=== PATIENT | male | born 1950 | race Two or more races ===

== ENCOUNTER 2016-12-11 03:29 | Emergency (ER) | payer MEDICARE ==
--- NOTE | 2016-12-11 04:29 | C.PDOC ---
History Of Present Illness The patient, a 66 y/o male, presents to the ED for evaluation of recurrent left- sided nose bleed for several days. Patient states his symptoms have been occurring in intermittent episodes. Patient's symptoms have currently resolved in the ED. Patient is not taking any prescription medication and denies any PMHx. Patient denies fever, chills, headache. Time Seen by Provider: 12/11/16 04:09 Chief Complaint (Nursing): ENT Problem History Per: Patient Onset/Duration Of Symptoms: Intermittent Episodes Past Medical History Reviewed: Historical Data, Nursing Documentation, Vital Signs Vital Signs: Last Vital Signs Temp Pulse 106 H 12/11/16 03:55 Resp 20 12/11/16 03:55 BP Pulse Ox 100 12/11/16 04:46 - Medical History PMH: Back Problems (Pain) Family History: States: Unknown Family Hx - Social History Hx Tobacco Use: Yes Hx Alcohol Use: No Hx Substance Use: No - Immunization History Hx Tetanus Toxoid Vaccination: No Hx Influenza Vaccination: Yes Hx Pneumococcal Vaccination: No Review Of Systems Except As Marked, All Systems Reviewed And Found Negative. Constitutional: Negative for: Fever, Chills ENT: Positive for: Other (+epistaxis ) Neurological: Negative for: Headache Physical Exam - Physical Exam Appears: Non-toxic, No Acute Distress Skin: Normal Color, Warm, Dry Head: Atraumatic, Normacephalic Eye(s): bilateral: Normal Inspection Nose: Other (+dry blood on both sides) Oral Mucosa: Moist Throat: Normal, No Erythema, No Exudate Neck: Normal ROM, Supple Chest: Symmetrical, No Deformity Cardiovascular: Rhythm Regular Respiratory: Normal Breath Sounds Extremity: Normal ROM, Capillary Refill (less than 2 seconds ) Neurological/Psych: Oriented x3, Normal Speech, Normal Cognition Gait: Steady ED Course And Treatment O2 Sat by Pulse Oximetry: 100 (on RA) Pulse Ox Interpretation: Normal Progress Note: Pt received Norvasc PO. Patient was offered nasal tamponade and instructed on proper epistaxis control. Patient states he does not want a nasal tamponade at this time. On reassessment, patient is resting comfortably, showing no signs of distress with no active epistaxis in the ED. Patient is stable for discharge with Rx for Afrin [place] and instructed on humidifier use and advised to follow up with ENT within a timely manner for further evaluation. Disposition Counseled Patient/Family Regarding: Diagnosis, Need For Followup, Rx Given - Disposition Referrals: John Collazo MD [Staff Provider] - Disposition: HOME/ ROUTINE Disposition Time: 04:28 Condition: IMPROVED Prescriptions: amLODIPine [Norvasc] 5 mg PO DAILY #15 tab Instructions: Nosebleed (ED), Hypertension (ED) - Clinical Impression Clinical Impression: Hypertension, Epistaxis - Scribe Statement The provider has reviewed the documentation as recorded by the Scribe (Sheyla Carvajal) Provider Attestation: All medical record entries made by the Scribe were at my direction and personally dictated by me. I have reviewed the chart and agree that the record accurately reflects my personal performance of the history, physical exam, medical decision making, and the department course for this patient. I have also personally directed, reviewed, and agree with the discharge instructions and disposition.
[2016-12-11 06:33] VITALS: BP 149/100; PULSE 86; RESP 18; O2SAT 99
== END 2016-12-11 06:29 | disposition home or self-care (01) ==
LOC: C.ER 03:29
DX: I10 Essential (primary) hypertension (principal); R04.0 Epistaxis

== ENCOUNTER 2018-02-09 19:31 | Inpatient (IN) | payer MEDICARE ==
[2018-02-09] MEDS ORDERED: Lidocaine 5% Patch TD STA (19:50)
[2018-02-09] MEDS ORDERED: Lidocaine 5% Patch TD ONE (19:57)
--- NOTE | 2018-02-09 20:42 | C.PDOC ---
History Of Present Illness 67yo male, presents to ED for evaluation of lower back pain, which has been ongoing "for a while." Patient states he was in this ER a couple years ago with similar pain and was given Toradol and percocet with complete resolution of pain. Patient states the pain this instance is worse than prior and he has difficulty getting out form his car or standing up from a chair. Patient currently denies any trauma or injury to his back, weakness, numbness, tingling of lower extremities, bowel or bladder dysfunction. He has no other medical complaints. PMD: Kwabena Walls Time Seen by Provider: 02/09/18 19:45 Chief Complaint (Nursing): Back Pain History Per: Patient History/Exam Limitations: no limitations Onset/Duration Of Symptoms: Persistent Current Symptoms Are (Timing): Still Present Quality Of Discomfort: "Pain" Previous Symptoms: Back Pain Additional History Per: Patient Past Medical History Reviewed: Historical Data, Nursing Documentation, Vital Signs Vital Signs: Last Vital Signs Temp 97.8 F 02/09/18 23:17 Pulse 72 02/09/18 23:17 Resp 20 02/09/18 23:17 BP 154/80 H 02/09/18 23:17 Pulse Ox 98 02/09/18 23:17 - Medical History PMH: Back Problems (Pain), HTN Surgical History: No Surg Hx Family History: States: No Known Family Hx, Unknown Family Hx - Social History Hx Tobacco Use: Yes Hx Alcohol Use: No Hx Substance Use: No - Immunization History Hx Tetanus Toxoid Vaccination: No Hx Influenza Vaccination: Yes Hx Pneumococcal Vaccination: No Review Of Systems Except As Marked, All Systems Reviewed And Found Negative. Constitutional: Negative for: Fever, Chills Genitourinary: Negative for: Incontinence Musculoskeletal: Positive for: Back Pain (lower) Neurological: Negative for: Weakness, Numbness Physical Exam - Physical Exam Appears: Non-toxic, No Acute Distress Skin: Normal Color, Warm, Dry Head: Atraumatic, Normacephalic Eye(s): bilateral: Normal Inspection Neck: Normal ROM, Supple Chest: Symmetrical Cardiovascular: Rhythm Regular Respiratory: Normal Breath Sounds Back: Vertebral Tenderness (marked tenderness to lumbar spine), No Straight Leg Raising Extremity: Normal ROM, No Tenderness, No Calf Tenderness, No Deformity Extremity: Bilateral: Atraumatic, Normal ROM Neurological/Psych: Oriented x3, Normal Motor, Normal Sensation ED Course And Treatment - Laboratory Results Result Diagrams: 02/09/18 23:10 O2 Sat by Pulse Oximetry: 98 (RA) Pulse Ox Interpretation: Normal - Other Rad XR Lumbar spine X-Ray: Interpreted by Me, Viewed By Me Interpretation: Degenerative changes noted. NO fractures, dislocations. Progress Note: XR lumbar spine ordered. Patient medicated with Toradol 30mg IM and Lidoderm patch. 20:43 On re-evaluation, patient reports persistent back pain. Percocet 1tab PO given. 22:05 Patient reports the pain is still present. Patient asked to walk to assess gait but states he is unable to stand up due to pain, he also reports associated dizziness. Case discussed with Dr. Walls ( patient's PMD) who states the patient has a history of HIV and has not followed up with him in the past 1.5 years. He recommends patient to be admitted overnight for observation due to intractable pain. Case discussed with Dr. [place] Carvajal, who accepts patient. Plan for admission discussed with patient, and he is agreeable. Disposition - Disposition Disposition: HOSPITALIZED Disposition Time: 21:55 Condition: FAIR - Clinical Impression Clinical Impression: Low back pain - PA / SCREENING NURSE / Resident Statement MD/DO has reviewed & agrees with the documentation as recorded. - Scribe Statement The provider has reviewed the documentation as recorded by the Scribe (Malini Holt) Provider Attestation: All medical record entries made by the Scribe were at my direction and personally dictated by me. I have reviewed the chart and agree that the record accurately reflects my personal performance of the history, physical exam, medical decision making, and the department course for this patient. I have also personally directed, reviewed, and agree with the discharge instructions and disposition. Decision To Admit - Pt Status Changed To: Hospital Disposition Of: Observation - . Bed Request Type: Regular Admitting Physician: Austin Carvajal Patient Diagnosis: Low back pain
[2018-02-09] MEDS ORDERED: Oxycodone/Acetaminophen 5/325 mg Tab PO STA (20:43)
[2018-02-09] MEDS ORDERED: Oxycodone/Acetaminophen 5/325 mg Tab ONE (20:58)
[2018-02-09 23:16] LABS: BASO # 0.1 K/uL (0.0-0.2); BASO % 1.3 % (0.0-2.0); EOS # 0.1 K/uL (0.0-0.7); EOS % 1.3 % (0.0-4.0); HEMOGLOBIN 14.4 g/dL (12.0-18.0); LYMPH # 3.3 K/uL (1.0-4.3); LYMPH % 50.1 % (20.0-40.0); MEAN CELL VOLUME 88.6 fL (80.0-94.0); MEAN CORPUSCULAR HEMOGLOBIN 30.1 pg (27.0-31.0); MEAN PLATELET VOLUME 7.9 fL (7.2-11.7); MONO # 0.8 K/uL (0.0-0.8); MONO % 11.8 % (0.0-10.0); NEUT # 2.4 K/uL (1.8-7.0); NEUT % 35.5 % (50.0-75.0); NRBC % 0.1 % (0.0-2.0); RBC 4.77 Mil/uL (4.40-5.90); RED CELL DISTRIBUTION WIDTH 14.4 % (11.5-14.5); WHITE BLOOD COUNT 6.7 K/uL (4.8-10.8)
[2018-02-09 23:17] VITALS: RESP 20
[2018-02-09 23:28] LABS: ALB/GLOB RATIO 0.8 (1.0-2.1); ALBUMIN 4.2 g/dL (3.5-5.0); CALCIUM 9.5 mg/dl (8.6-10.4); GFR AFRICAN-AMERICAN > 60; GFR NON-AFRICAN AMERICAN > 60
[2018-02-09 23:29] LABS: ALT/SGPT 15 U/L (21-72); AST/SGOT 34 U/L (17-59); BLOOD UREA NITROGEN 23 mg/dL (9-20)
[2018-02-10] MEDS ORDERED: Lidocaine 5% Patch TD PRN ×2 (00:14→01:00)
--- NOTE | 2018-02-10 10:01 | RAD ---
PROCEDURE: Radiographs of the Lumbar Spine. HISTORY: pain COMPARISON: No prior. FINDINGS: BONES: Straightened lumbar lordosis. No fracture or spondylolisthesis. Multilevel spondylosis appears moderate in severity with upper intervertebral disc level disc height loss suggesting degenerative disease as well. No destructive bony lesion appreciable. DISC SPACES: As above. OTHER FINDINGS: None. IMPRESSION: Straightened lumbar curvature without fracture or spondylolisthesis. Multilevel spondylosis appears moderate in severity.
[2018-02-10] MEDS: Pantoprazole 40 mg EC Tab PO SCH (10:12)
[2018-02-10] MEDS: Enoxaparin 40 mg Syringe SC SCH (10:12)
--- NOTE | 2018-02-10 13:58 | CP.PCM.HP ---
Past Patient History - Infectious Disease Hx of Infectious Diseases: None - Past Social History Smoking Status: Heavy Smoker > 10 Cigarettes Daily - CARDIAC Hx Hypertension: Yes - PSYCHIATRIC Hx Substance Use: No - SURGICAL HISTORY Hx Surgeries: No - ANESTHESIA Hx Anesthesia: No Meds Home Medications: Home Medication List Medication Instructions Recorded Confirmed Type Famotidine [Pepcid] 20 mg PO BID #20 tab 02/09/18 Rx Lidocaine 5% [Lidoderm] 1 patch TP DAILY #30 patch 02/09/18 Rx Naproxen [Naprosyn] 1 tab PO BID PRN #25 tab 02/09/18 Rx diaZEpam [Valium] 2 mg PO TID #15 tab 02/09/18 Rx Allergies/Adverse Reactions: Allergies Allergy/AdvReac Type Severity Reaction Status Date / Time No Known Allergies Allergy Verified 02/09/18 19:38 Physical Exam - Constitutional Appears: Well - Head Exam Head Exam: ATRAUMATIC, NORMAL INSPECTION, NORMOCEPHALIC - Eye Exam Eye Exam: EOMI, Normal appearance, PERRL Pupil Exam: NORMAL ACCOMODATION, PERRL - ENT Exam ENT Exam: Mucous Membranes Moist, Normal Exam - Neck Exam Neck exam: Positive for: Normal Inspection - Respiratory Exam Respiratory Exam: Decreased Breath Sounds - Cardiovascular Exam Cardiovascular Exam: REGULAR RHYTHM, +S1, +S2 Results - Vital Signs Recent Vital Signs: Last Vital Signs Temp 97.7 F 02/10/18 08:08 Pulse 70 02/10/18 08:08 Resp 20 02/10/18 08:08 BP 131/87 02/10/18 08:08 Pulse Ox 96 02/10/18 08:19 - Labs Result Diagrams: 02/09/18 23:10 02/09/18 23:10 Labs: Laboratory Results - last 24 hr 02/09/18 02/09/18 23:10 23:10 WBC 6.7 RBC 4.77 Hgb 14.4 Hct 42.3 MCV 88.6 MCH 30.1 MCHC 34.0 RDW 14.4 Plt Count 251 MPV 7.9 Neut % (Auto) 35.5 L Lymph % (Auto) 50.1 H [place] % (Auto) 11.8 H Eos % (Auto) 1.3 Baso % (Auto) 1.3 Neut # (Auto) 2.4 Lymph # (Auto) 3.3 [place] # (Auto) 0.8 Eos # (Auto) 0.1 Baso # (Auto) 0.1 Sodium 141 Potassium 4.9 Chloride 106 Carbon Dioxide 26 Anion Gap 14 BUN 23 H Creatinine 1.0 Est GFR ( Amer) > 60 Est GFR (Non-Af Amer) > 60 Random Glucose 88 Calcium 9.5 Total Bilirubin 1.0 AST 34 ALT 15 L Alkaline Phosphatase 109 Total Protein 9.4 H Albumin 4.2 Globulin 5.2 H Albumin/Globulin Ratio 0.8 L
[2018-02-11] MEDS: Pantoprazole 40 mg EC Tab PO SCH (09:15)
[2018-02-11] MEDS: Enoxaparin 40 mg Syringe SC SCH (09:17)
[2018-02-11] MEDS ORDERED: Pneumococcal 23-Valent Vaccine IM ONE (16:30)
[2018-02-11 17:34] VITALS: BP 133/87; PULSE 76; TEMP 97.8; O2SAT 96
--- NOTE | 2018-02-11 18:06 | CP.PCM.PN ---
Subjective - Date & Time of Evaluation Date of Evaluation: 02/11/18 Objective - Vital Signs/Intake and Output Vital Signs (last 24 hours): Temp Pulse Resp BP Pulse Ox 97.8 F 76 20 133/87 96 02/11/18 16:00 02/11/18 16:00 02/11/18 16:00 02/11/18 16:00 02/11/18 16:00 Intake and Output: 02/11/18 02/11/18 06:59 18:59 Intake Total 450 600 Balance 450 600 - Medications Medications: Current Medications Amlodipine Besylate (Norvasc) 5 mg PO DAILY [facility] Last Admin: 02/11/18 09:15 Dose: 5 mg Enoxaparin Sodium (Lovenox) 40 mg SC DAILY [facility] Last Admin: 02/11/18 09:17 Dose: 40 mg Ketorolac Tromethamine (Toradol) 15 mg IVP Q8 PRN PRN Reason: Pain, Mild (1-3) Last Admin: 02/11/18 16:42 Dose: 15 mg Lidocaine (Lidoderm) 1 ea TD 1200 PRN PRN Reason: Pain, Mild (1-3) Last Admin: 02/11/18 16:41 Dose: 1 ea Pantoprazole Sodium (Protonix Ec Tab) 40 mg PO DAILY [facility] Last Admin: 02/11/18 09:15 Dose: 40 mg - Labs Labs: 02/09/18 23:10 02/09/18 23:10
[2018-02-12] MEDS ORDERED: Pneumococcal 23-Valent Vaccine IM ONE (10:00)
--- NOTE | 2018-02-13 07:10 | CON ---
DATE: ATTENDING PHYSICIAN: Latonia Carvajal MD LOCATION: The patient is seen in room number 369, bed A. REASON FOR CONSULTATION: Intractable back pain. CHIEF COMPLAINT: The patient was brought into [facility] with history of back pain. From neurologic point of view, I was called into evaluate him for further management. HISTORY OF PRESENT ILLNESS: Mr. Maurice Bustamante is a 67-year-old moderately obese right-handed male who came to hospital with history of worsening lower back pain. He claims that lower back pain is localized in the region of the lumbosacral area, not radiating to his leg, not associating with any leg weakness, and not associated with any numbness or tingling sensation of his legs. No history of bowel or bladder incontinence. Pain intensified on sitting longer in one place and prolonged walking. No neurogenic claudication. No history of trauma. No history of fall. PAST MEDICAL HISTORY: Hypertension. PERSONAL HISTORY: Recently, he quit smoking and alcohol use. ALLERGIES: NO KNOWN ALLERGIES. REVIEW OF SYSTEMS: A 12-point system being reviewed. From neuro, lower back pain. MEDICATIONS: Lidoderm patch, Lovenox, Norvasc, Protonix, Ketorolac. PHYSICAL EXAMINATION: VITAL SIGNS: Blood pressure 154/99, mean arterial pressure of 170, respiratory rate 18, temperature 98.1 degree Fahrenheit, pulse rate 88 and regular. NECK: Supple. No carotid bruit. HEART: Sounds regular. CHEST: Fair air entry. EXTREMITIES: No edema in legs. NEUROLOGIC EXAMINATION: Mental status exam: He is awake, alert and oriented to person, place, and time. Speech is clear. Naming, repetition, fluency, comprehension all within normal. Cranial nerve examination: Visual field intact. Pupils reactive to light. Extraocular movement normal. No nystagmus. No facial sensory deficit. No facial asymmetry. Hearing is normal. Tongue is midline. Good gag. Motor examination: Outstretched hand with eyes closed, no drift noted. Power is symmetric on either side. Lower extremity examination shows some pain limited examination in proximal iliopsoas flexion. Deep tendon reflexes absent throughout. Plantars are downgoing. Sensory examination: No evidence of dermatomal sensory loss. BACK: Examination of the spine, tenderness over the lumbosacral region. The patient could able to walk. Mild scoliosis noted. LABORATORY DATA: Workup: X-ray of the lumbosacral spine, no acute pathology is noted. Blood workup: WBC 6.7, hemoglobin 14.4, hematocrit 42.3, platelet 251. Sodium 141, potassium 4.9, chloride 106, bicarbonate 26, BUN 23, creatinine 1, GFR more than 60, ALT 50, alkaline phosphatase 109, total protein 9.4. CONCLUSION: Mr. Maurice Bustamante has been presenting with possible lumbosacral disk disease without any radicular pattern or any long track signs as per neurological examination. RECOMMENDATIONS: 1. The patient can get out of the bed and physical therapy should be continued. 2. If medically stable, the patient can be discharged and should have followup visit with me as outpatient, and his MRI can be done as outpatient as well. Let him wear the lumbar support at present time. 3. Weight reduction and proper exercise have been discussed with the patient. The patient will be followed by me as outpatient. Red Mares MD
== END 2018-02-11 19:15 | disposition home or self-care (01) | DRG 552 ==
LOC: C.ER 19:31 → C.9E 22:38 → C.3T 02-10 00:17 → OBSVTOIN 02-11 12:00
PROVIDERS: ADMIT Internal Medicine Nephrology; ATTEND Internal Medicine Nephrology
DX: M54.5 Low back pain (principal); I10 Essential (primary) hypertension; E66.9 Obesity, unspecified; Z87.891 Personal history of nicotine dependence; Z68.30 Body mass index [BMI] 30.0-30.9, adult

== ENCOUNTER 2018-08-29 14:05 | Emergency (ER) | payer MEDICARE ==
[2018-08-29 14:29] VITALS: BP 142/96; PULSE 94; RESP 18; TEMP 97.6; O2SAT 96
--- NOTE | 2018-08-29 15:04 | C.PDOC ---
Time Seen by Provider: 08/29/18 14:47 Chief Complaint (Nursing): Cough, Cold, Congestion History Per: Patient Onset/Duration Of Symptoms: Days (5) Current Symptoms Are (Timing): Still Present Associated Symptoms: Sore Throat, Cough, Nasal Congestion Severity: Moderate Additional History Per: Prior Records Past Medical History Reviewed: Historical Data, Nursing Documentation, Vital Signs Vital Signs: Last Vital Signs Temp 97.6 F 08/29/18 14:23 Pulse 94 H 08/29/18 14:23 Resp 18 08/29/18 14:23 BP 142/96 H 08/29/18 14:23 Pulse Ox 96 08/29/18 14:23 - Medical History PMH: Back Problems (Pain), HTN Family History: States: Unknown Family Hx - Social History Hx Tobacco Use: Yes Hx Alcohol Use: No Hx Substance Use: No - Immunization History Hx Tetanus Toxoid Vaccination: No Hx Influenza Vaccination: Yes Hx Pneumococcal Vaccination: No Review Of Systems Except As Marked, All Systems Reviewed And Found Negative. Constitutional: Negative for: Fever ENT: Positive for: Nose Congestion, Throat Pain Cardiovascular: Negative for: Chest Pain Respiratory: Positive for: Cough. Negative for: Shortness of Breath, Hemoptysis Gastrointestinal: Negative for: Vomiting, Abdominal Pain Musculoskeletal: Negative for: Neck Pain Skin: Negative for: Rash Neurological: Negative for: Weakness, Numbness Physical Exam - Physical Exam Appears: Non-toxic, No Acute Distress Skin: Normal Color, Warm, Dry Head: Atraumatic, Normacephalic Eye(s): bilateral: PERRL, EOMI Throat: Erythema, No Exudate, No Drooling, No Mass Neck: Normal ROM, Supple Cardiovascular: Rhythm Regular Respiratory: Normal Breath Sounds, No Accessory Muscle Use Extremity: Normal ROM, No Pedal Edema, No Calf Tenderness Neurological/Psych: Oriented x3, Normal Speech, Normal Motor, Normal Sensation ED Course And Treatment O2 Sat by Pulse Oximetry: 96 Pulse Ox Interpretation: Normal Disposition Counseled Patient/Family Regarding: Diagnosis, Need For Followup, Rx Given - Disposition Referrals: Kwabena Walls MD [Staff Provider] - Disposition: HOME/ ROUTINE Disposition Time: 15:02 Condition: STABLE Additional Instructions: Follow up with your doctor. Return to the ER if you develop fever, shortness of breath, chest pain, worsening of symptoms or if you have any other concerns. Prescriptions: Benzonatate 200 mg PO TID PRN #15 capsule PRN Reason: Cough Instructions: Upper Respiratory Infection (ED) Forms: [employer] ([place]ovenian) - Clinical Impression Clinical Impression: Upper respiratory infection
== END 2018-08-29 15:11 | disposition home or self-care (01) ==
LOC: C.ER 14:05
DX: J06.9 Acute upper respiratory infection, unspecified (principal); F17.210 Nicotine dependence, cigarettes, uncomplicated